=== PATIENT | female | born 2000 | race Caucasian/White ===

== ENCOUNTER 2019-04-13 15:34 | Emergency (ER) | payer SELFPAY ==
[~2019-04-13] VITALS: Ht 157.5 cm; Wt 78.0 kg
[2019-04-13 15:52] VITALS: BP 127/81
--- NOTE | 2019-04-13 15:53 | NUR ---
ED Nurse Note:pt. came with left 5th finger injury and swelling, skin is intact, given ice pack
--- NOTE | 2019-04-13 16:10 | Diagnostic Imaging Report ---
Indication: pain in finger. trauma Findings: 3 views of the left fifth digit were obtained. There is acute comminuted fracture of the distal part of the fifth metacarpal. There is moderate angulation and displacement. Soft tissue swelling noted. IMPRESSION: Displaced angulated comminuted fracture of the distal fifth metacarpal
[2019-04-13] MEDS: Tylenol #3 tab (300mg/30mg) ORAL ONE ×2 (16:15→16:19)
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
[2019-04-13] MEDS ORDERED: IBU800 MG PO (16:20)
--- NOTE | 2019-04-13 16:50 | NUR ---
ER DISCHARGE NOTE:splint placed on left hand Patient is cleared to be discharged per ERMD, pt is aox4, on room air, with stable vital signs. pt was given dc and prescription instructions, pt was able to verbalize understanding, pt is able to ambulate with steady gait. pt took all belongings.
[2019-04-13 17:01] VITALS: BP 127/81
== END 2019-04-13 16:45 | disposition home or self-care (01) ==
LOC: EMR 16:40
DX: S62.307A Unspecified fracture of fifth metacarpal bone, left hand, initial encounter for closed fracture (principal); W22.09XA Striking against other stationary object, initial encounter; Y92.9 Unspecified place or not applicable
CPT/HCPCS: 29125; 99283